=== PATIENT | male | born 1965 | race African-American/Black ===

== ENCOUNTER 2025-09-30 12:06 | Outpatient (CLI) | payer OTHER, SELFPAY ==
--- NOTE | ~2025-09-30 | PE_ITS ---
EXAMINATION: PET_PETPSMAST_PT DATE: 09/30/2025 15:08 INDICATION: Prostate cancer TECHNIQUE: 5.156 mCi of Illucix Ga-68([id number]) was administered i.v. Low dose computed tomography (CT) images were acquired from the base of the brain to the base of the brain to the proximal thighs for attenuation correction and anatomic localization. Positron emission tomography (PET) images were acquired in the same distribution beginning 76 minutes after injection. Images including fused PET/CT images were reconstructed in axial, coronal, and sagittal planes. Automated exposure control technique was employed. The dose-length product was 1237.41mGy-cm. COMPARISON: None FINDINGS: Head/neck: Typical pattern of symmetric physiologic increased activity in the lacrimal, parotid and submandibular glands as well as along the mucosa of the nasal and oral cavities, pharynx and hypopharynx. No pathologically enlarged cervical lymphadenopathy or suspicious foci of increased uptake in the visualized head or neck. Chest: No suspicious pulmonary nodules, pneumonia or other pulmonary infiltrates. No pleural effusion. Heart size normal. Atherosclerotic coronary artery calcium location. No pericardial effusion. Thoracic aorta is normal in caliber. No pathologically enlarged or PSMA avid thoracic lymphadenopathy. Abdomen/pelvis/proximal thighs: Physiologic renal accumulation and excretion of activity in the kidneys, bladder and along portions of ureters. Prostatomegaly measuring 4.7 x 4.6 cm. There is heterogeneous increased uptake in the prostate with 2 foci of more prominent uptake most intense with maximal SUV of 10.6 at the midline posterior inferior margin of the prostate and the second slightly more cephalad at the right posterior aspect of the prostate with maximal SUV of 8.2. Normal degree and slightly heterogenous pattern of increased uptake throughout the liver and spleen without radiologic correlate or dominant PSMA avid lesion. The gallbladder, pancreas and bilateral adrenal glands are normal. Moderate uptake scattered throughout the bowels with typical duodenal and proximal jejunal predominance and without radiologic correlate, also likely physiologic. Normal appendix. There is a 10 x 6 mm left perirectal/presacral lymph node with prominent increased activity with maximal SUV of 12.2 consistent with metastatic disease. No other abnormal foci of increased uptake or pathologically enlarged lymphadenopathy in the abdomen, pelvis or proximal thighs. Musculoskeletal: Moderate cervical and lumbar and severe thoracic spondylosis with bridging osteophytes at multiple levels predominantly in the thoracic spine consistent with diffuse idiopathic skeletal hyperostosis (DISH). No suspicious lytic, blastic or abnormally PSMA avid bone lesions. IMPRESSION: 1. Heterogeneous increased uptake in the prostate with 2 foci of more intense uptake posteriorly consistent with primary prostate cancer. 2. Single PSMA avid 10 x 6 mm left perirectal/presacral lymph node consistent with metastatic disease. No other lesions suspicious for metastatic disease in the chest, abdomen or pelvis. Reviewed, dictated and finalized at location A. [facility] IMPRESSION: 1. Heterogeneous increased uptake in the prostate with 2 foci of more intense u ptake posteriorly consistent with primary prostate cancer. 2. Single PSMA avid 10 x 6 mm left perirectal/presacral lymph node consistent w ith metastatic disease. No other lesions suspicious for metastatic disease in t he chest, abdomen or pelvis.
--- OUTSIDE RECORDS SUMMARY | 2025-09-30 12:29 | XMS_ITS | Clinical Summary ---
Author Organization [facility] Address [address] [place] [phone] Phone Care Team Providers Care Judge Clerk Name Role Phone Provider, Unknown Primary Care Provider Unavaila ble Allergies No known active allergies Medications Meloxicam 15 MG Tablet Take 1 Tab by mouth daily. 1 12/31/2018 Active lisinopril-hydr oCHLOROthiazide (PRINZIDE, ZESTORETIC) 20-25 MG Tablet Take 1 Tab by mouth daily. 2 01/14/2019 Active dilTIAZem (CARDIZEM CD) 120 MG CAPSULE SR 24 HR TAKE 1 CAPSULE BY MOUTH EVERY DAY 1 02/04/2019 Active amoxicillin-cla vulanate (AUGMENTIN) 875-125 MG TabletIndicatio ns:Dental abscess Take 1 Tab by mouth 2 times daily. 20 Tab 02/14/2019 Active HYDROcodone-satya taminophen (NORCO) 5-325 MG TabletIndicatio ns:Pain, dental Take 1 Tab by mouth every 6 hours as needed for Moderate or more severe pain. 12 Tab 02/14/2019 Active Active Problems No known active problems Social History Tobacco Use Types Packs/Day Years Used Date Smoking Tobacco: Never Smokeless Tobacco: Never Alcohol Use Standard Drinks/Week Comments Yes 0 (1 standard drink = 0.6 oz pur e alcohol) occasionally Sex and Gender Information Value Date Recorded Sex Assigned at Not on file Legal Sex Male 12:14 AM CDT Gender Identity Not on file Sexual Orientation Not on file Last Filed Vital Signs Vital Sign Reading Time Taken Comments Blood Pressure 134/84 02/14/2019 1:59 PM CDT Pulse 114 02/14/2019 1:59 PM CDT Temperature 37.8 C (100 F) 02/14/2019 1:59 PM CDT Respiratory Rate - - Oxygen Saturation 96% 02/14/2019 1:59 PM CDT Inhaled Oxygen Concentration - - Weight 119.3 kg (263 lb) 02/14/2019 1:59 PM CDT Height 175.3 cm (5' 9) 02/14/2019 1:59 PM CDT Body Mass Index 38.84 02/14/2019 1:59 PM CDT Plan of Treatment Health Maintenance Due Date Last Done Comments Hepatitis C Virus (HCV) Screening 1965 TdaP Immunization 1963 Cologuard 2008 Colonoscopy 2008 Colorectal Cancer Screening 2008 Immunochemical Fecal Occult Blood 2008 Pneumococcal Immunization (5 0+ years) (1 of 1 - PCV) 2013 Zoster Immunization (1 of 2) 2013 Influenza Immunization (#1) 2025 SARS-COV-2 Immunization ( - season) 2025 Respiratory Syncytial Virus (RSV) Immunization (Adult) (1 - 1-dose 75+ series) 2038 Hepatitis B Immunization Aged Out No longer eligible based on patient's age to complete this topic Human Papillomavirus (HPV) Immunization Aged Out No longer eligible b ased on patient's age to complete this topic Meningococcal Immunization (ACWY) Aged Out No longer eligible based on patient's age to complete this topic Rotavirus Immunization Aged Out No lo nger eligible based on patient's age to complete this topic Insurance [facility] Care Teams Judge Clerk Relationship Specialty Start Date End Date Provider, Unknown UNKNOWN PCP - General 02/14/19
--- OUTSIDE RECORDS SUMMARY | 2025-09-30 12:29 | XMS_ITS | Clinical Summary ---
Author Organization [facility] Address [address] [place] [address] Phone Care Team Providers Care Retail Selling Specialist Name Role Phone Gunnar Brown MD Primary Care Provider Medications dilTIAZem (DILACOR XR) 180 mg Extended Release capsule Take 1 Capsule (180 mg) by mouth daily. 90 Capsule 3 07/05/2025 4:40 PM CDT 12/30/2024 Active lisinopril-hydr oCHLOROthiazide (ZESTORETIC) 20-25 mg tablet Take 1 Tablet by mouth daily. 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 Relation to Subscriber:Self Name:Bernabe Landin Sr. Payer ID:Not on file Group ID:[id number] Type:RX Commercial Address: [place] Care Teams Retail Selling Specialist Relationship Specialty Start Date End Date Gunnar Brown MD [address] [place] [phone] PCP - General Family Practice 10/10/23
--- OUTSIDE RECORDS SUMMARY | 2025-09-30 12:29 | XMS_ITS | Clinical Summary ---
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 Name Role Phone Gunnar Brown MD Primary Care Provider Lake Correia MD Unavailable [phone] Allergies No known active allergies Medications B.animalis,bifid ,infantis,long (PROBIOTIC 4X ORAL) Take by mouth Active omega-3 fatty acids-fish oil 300-1,000 mg capsule Take 2 capsules (2 g total) by mouth daily Active cholecalciferol 25 mcg (1,000 unit) tablet Take 1 tablet (1,000 Units total) by mouth daily Active ascorbic acid (ascorbic acid with abdias hips) 500 mg tablet,chewable Acti ve MAGNESIUM CITRATE ORAL Take by mouth Active dilTIAZem XR 180 mg 24 hr capsuleIndicatio ns:Benign hypertension Take 1 Capsule (180 mg) by mouth daily. 100 capsule 3 5 Active lisinopril-hydro CHLOROthiazide (ZESTORETIC) 20-25 mg per tabletIndication s:Benign hypertension Take 1 Tablet by mouth daily. 100 tablet 3 5 Active zinc sulfate (ZINC-220 ORAL) Take by mouth 2 (two) times a week 09/07/20 25 Discontinu ed(Therapy completed) Active Problems Problem Noted Date Diagnosed Date Elevated prostate specific antigen (PSA) 025 Prediabetes 08/22/2025 Impaired fasting glucose 01/12/2024 Positive colorectal cancer screening using Colog uard test 01/28/2023 Overview (01/28/2023): Added automatically from request for surgery [id number] Slow transit constipation 03/29/2022 Assessment & Plan (03/29/2022 5:00 PM CDT): Continue higher-fiber, higher-hydration diet Want to aim for 64 ounces of water daily Flat abdomen xray ordered today I don't believe we are dealing with obstruction, however if pain ratchets up, or there is a stoppage in flatus (gas) passage as well as constipation, we will need to get CT. The abdominal xray can also tell if there is obstruction, however. Lumbar facet arthropathy 02/22/2021 Degenerative lumbar spinal stenosis 02/22/2021 DDD (degenerative disc disease), lumbar 02/23/20 Insomnia secondary to chronic pain 01/18/2021 Chronic bilateral low back pain without sciatica 01/18/2021 Lumbar radiculopathy 01/18/2021 Primary osteoarthritis of right hip 12/04/2020 Hip abductor tendinitis, right 12/04/2020 Class 2 obesity due to exces s calories without serious comorbidity with body mass index (BMI) of 35.0 to 35.9 in adult 01/19/2020 Assessment & Plan (08/22/2025 9:12 AM CDT): BMI Follow-up includes: nutrition counseling, exercise counseling, and education provided. Assessment & Plan (02/18/2025 10:02 AM CDT): BMI Follow-up includes: nutrition counseling, exercise counseling, and education provided. Assessment & Plan (07/16/2024 10:35 AM CDT): BMI Follow-up includes: nutrition counseling, exercise counseling, and education provided. 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 Assessment & Plan (07/10/2023 10:15 AM CDT): Improving BMI Follow-up includes: nutrition counseling, exercise counseling, and education provided. 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 Assessment & Plan (10/25/2021 8:25 AM SOLE 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 OPERATOR): BMI Follow-up includes: nutrition counseling, exercise counseling and education provided. Assessment & Plan (02/05/2021 8:00 PM CDT): BMI Follow-up includes: nutrition counseling, exercise counseling and education provided. The phentermine failed, so we will avoid that in the future. Trying the Slim 180 diet, so we will see how that progresses As much as it fits with the Slim plan, adhere to the DASH plan (see below) Other specified inflammatory spondylopathies, thoracic region 01/19/2020 History of total knee arthroplasty, left 019 History of total knee arthroplasty, right 2018 Presence of artificial knee joint, left 10/06/20 19 Chronic pain of both knees 02/18/2019 Assessment & Plan (02/18/2019 12:00 PM CDT): Continue with meloxicam Referral to Orthopedics Patient had his right knee replaced and now is ready for his left knee to be replaced Recommend weight loss Lipid screening 09/18/2017 Assessment & Plan (09/18/2017 5:12 PM CDT): Will check ;lipids Benign hypertension 04/09/2014 Overview (02/28/2017): BENIGN HYPERTENSION Assessment & Plan (02/18/2025 10:02 AM CDT): Blood Pressure Follow-up: Lifestyle modifications education provided on sodium reduction, increase physical activity, reduce alcohol consumption, and weight reduction. Assessment & Plan (07/16/2024 10:36 AM CDT): Blood Pressure Follow-up: Lifestyle modifications education provided on sodium reduction, increase physical activity, reduce alcohol consumption, and weight reduction. 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 Assessment & Plan (07/10/2023 10:16 AM CDT): Continuing diltiazem, lisinopril-hct as before Discussed DASH Awaiting labs Follow up in 6 mos, sooner PRN Assessment & Plan (01/09/2023 10:32 AM SOLE 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 OPERATOR): Blood pressure looks good today in office, will continue Lisinopril-HCTZ and Diltiazem. Assessment & Plan (04/28/2022 11:03 AM CDT): BP is borderline today Discussed IF. Would encourage to use 14:10 or 16:8 schedule rather than 12:12 (you can work up to it of course) Continuing current regimen As to semglutide, it is on the formulary (as Ozempic) but is higher-tiered (likely more expensive). Assessment & Plan (02/05/2021 8:00 PM CDT): Blood Pressure Follow-up: Lifestyle modifications education provided on sodium reduction, increase physical activity, reduce alcohol consumption and weight reduction. BP is much improved. We will continue on diltiazem current dose Assessment & Plan (02/18/2019 12:01 PM CDT): Hypertension is unchanged. Continue current treatment regimen. Blood pressure will be reassessed at the next regular appointment. Continue with lisinopril-hydrochlorothiazide daily Continue with diltiazem CD 120 mg daily Lifestyle changes can help you control and prevent high blood pressure, even if you're taking blood pressure medication. Here's what you can do: Eat healthy foods. Eat a healthy diet. Try the Dietary Approaches to Stop Hypertension (DASH) diet, which emphasizes fruits, vegetables, whole grains, poultry, fish and low-fat dairy foods. Get plenty of potassium, which can help prevent and control high blood pressure. Eat less saturated fat and trans fat. Decrease the salt in your diet. A lower sodium level -- 1,500 milligrams (mg) a day -- is appropriate for people 51 years of age or older, and individuals of any age who are black or who have hypertension, diabetes or chronic kidney disease. Maintain a healthy weight. Keeping a healthy weight, or losing weight if you're overweight or obese, can help you control your high blood pressure and lower your risk of related health problems. If you're overweight, losing even 5 pounds (2.3 kilograms) can lower your blood pressure. Increase physical activity. Regular physical activity can help lower your blood pressure, manage stress, reduce your risk of several health problems and keep your weight under control. Limit alcohol. Even if you're healthy, alcohol can raise your blood pressure. If you choose to drink alcohol, do so in moderation. For healthy adults, that means up to one drink a day for women of all ages and men older than age 65, and up to two drinks a day for men age 65 and younger. One drink equals 12 ounces of beer, 5 ounces of wine or 1.5 ounces of 80-proof liquor. Don't smoke. Tobacco injures blood vessel ramirez and speeds up the process of hardening of the arteries. If you smoke, ask your doctor to help you quit. Manage stress. Reduce stress as much as possible. Practice healthy coping techniques, such as muscle relaxation, deep breathing or meditation. Getting regular physical activity and plenty of sleep can help, too. Notify the office for blood pressure greater than 130/80 Assessment & Plan (09/21/2017 2:38 PM CDT): Hypertension is unchanged. Regular aerobic exercise. Continue current medications. Blood pressure will be reassessed at the next regular appointment. 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 He is unsure about physical therapy or muscle relaxers. He had a cxr which did show some DDD in his thoracic spine. We'll start with dedicated x-ray of thoracic spine. Consider MRI if needed. He has some tramadol from ER for pain. Obesity (BMI 30-39.9) 04/09/20142019 Overview (02/28/2017): MORBID OBESITY Assessment & Plan (02/18/2019 11:59 AM CDT): Obesity is unchanged. Discussed the patient's BMI. The BMI is above average; BMI management plan is completed. General weight loss/lifestyle modification strategies discussed (elicit support from others; identify saboteurs; non-food rewards, etc). Diet= low-carb Limit white bread, rice, pasta, potatoes, juice, energy drinks, coffee creamers with sugar, sugar sodas, candy, cake, cookies, ice cream. Be more careful with starchy vegetables like corn, carrots, and fruits. Stay away from processed foods, fast foods, fried foods. The cornerstone of this diet is lean grilled meats, green salads or cooked greens, fat-free milk, cottage cheese, nuts like qmmjkez-xrmsweh-szahezu, protein bars with 10-15 g of protein and 20-30 g of carbohydrate. Choose whole grain breads and pastas, brown rice, sweet potatoes, read onions--these whole grains absorb more slowly thus blood sugar does not surge so high so quickly. Avoid drinking juice, eat a piece of fruit instead. Assessment & Plan (09/21/2017 2:40 PM CDT): BMI Follow-up includes: exercise counseling. Encounters Date Type Department Care Team Description 09/15/2025 7:30 AM CDT - 09/15/2025 8:15 AM CDT Surgery [facility] Operating Room [address] [place] [address] Lake Correia MD URONAV GUIDED PROSTATE BIOPSY 09/15/2025 7:25 AM CDT Anesthesia Event [facility] Operating Room [address] [place] [address] Sanjeev Strange, DO Waldron, Ji Mckenzie MD 09/15/2025 6:02 AM CDT - 09/15/2025 9:13 AM CDT Hospital Encounter [facility] Operating Room [address] [place] [address] Lake Correia MD Elevated prostate specific antigen (PSA) Discharge Disposition: Discharge to home or self care 08/22/2025 9:45 AM CDT Ancillary Procedure [facility] Imaging at [address] [phone] Degenerative lumbar spinal stenosis 08/22/2025 9:00 AM CDT Office Visit [facility] Primary Care at [address] [phone] Gunnar Brown MD Benign hypertension (Primary Dx); Class 2 obesity due to excess calories without serious comorbidity with body mass index (BMI) of 35.0 to 35.9 in adult; Prediabetes; Need for hepatitis B screening test; Degenerative lumbar spinal stenosis 08/22/2025 Results Follow-Up [facility] Primary Care at [address] [phone] Gunnar Brown MD XR Spine Lumbar 2 or 3 Views 07/04/2025 8:55 AM CDT Lab [address] Benign hypertension; Screening PSA (prostate specific antigen); Impaired fasting glucose 07/04/2025 Results Follow-Up [facility] Primary Care at [address] [phone] Gunnar Brown MD Lipid panel, PSA screen, Hemoglobin A1c, Additional followed-up results: 4 from Last 3 Months Immunizations Immunization Administration Dates Next Due Influenza, Quadrivalent, Spl it, Intramuscular 12/11/2016,06/12/2016 Influenza, Unspecified 02/18/2025(Deferr ed: Patient Refused),11/25/2023(Deferred: Patient Refused),11/24/2023(Deferred: Patient Refused),07/10/2023(Deferred: Patient Refused),01/09/2023(Deferred: Patient Refused),11/25/2022(Deferred: Patient Refused),11/24/2022(Deferred: Patient Refused),11/25/2021(Deferred: Patient Refused),11/24/2021(Deferred: Patient Refused),10/25/2021(Deferred: Patient Refused),11/24/2020(Deferred: Patient Refused),11/24/2020(Deferred: Patient Refused),10/08/2020(Deferred: Patient Refused),09/15/2019(Deferred: Patient Refused),08/24/2018(Deferred: Patient Refused),10/15/2017(Deferred: Patient Refused) Tdap 12/26/2014 Surgical History Surgery Date Site/Laterality Comments OTHER SURGICAL HISTORY 11/24/2013 - 11/23/2014 Influenza: Medical Management KNEE ARTHROSCOPY Arthroscopy knee JOINT REPLACEMENT Bilateral knee COLONOSCOPY 02/11/2023 Medical History Medical History Date Comments Hx Other Medical Influenza; Comm ents: Confirmed via rapid influenza swab. 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; Commen ts: OAC 07/23/2016 -ALL Arthritis Joint pain Family History Medical History Relation Name Comments Diabetes type II Mother Zuleika Landin Diabetes -T ype II; Hypertension Mother Zuleika Landin Hypertension; Stroke Mother Zuleika Landin Stroke; Diabetes type II Other Family hist ory of Diabetes mellitus type 2; Hypertension Sister None Hypertension; Relation Name Status Comments Mother Zuleika Landin Other Sister None Social History Tobacco Use Types Packs/Day Years Used Date Smoking Tobacco: Former Cigarettes Q uit: 12/1999 Smokeless Tobacco: Never Tobacco Cessation:Counseling Given: Not Answered Alcohol Use Standard Drinks/Week Comments Yes 0 (1 standard drink = 0.6 oz pur e alcohol) PHQ-2 Answer Date Recorded PHQ-2 Total Score (If total score is 3 or more points, staff should administer the PHQ-9) 0 08/22/2025 AUDIT-C Answer Date Recorded Q1: How often do you have a drink containing alc ohol? Monthly or less 09/07/2025 Q2: How many drinks containi ng alcohol do you have on a typical day when you are drinking? 1 or 2 09/07/2025 Q3: How often do you have si x or more drinks on one occasion? Never 09/07/2025 Personal Safety Answer Date Recorded Have you ever been in or are you currently in a harmful physical or emotional relationship or is someone making you feel afraid or unsafe? 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 Gender Identity Not on file Sexual Orientation Not on file Last Filed Vital Signs Vital Sign Reading Time Taken Comments Blood Pressure 125/78 09/15/2025 9:03 AM CDT Pulse 60 09/15/2025 9:03 AM CDT Temperature 36.3 C (97.4 F) 09/15/2025 9:03 AM CDT Respiratory Rate 18 09/15/2025 9:03 AM CDT Oxygen Saturation 94% 09/15/2025 9:03 AM CDT Inhaled Oxygen Concentration - - Weight 111.6 kg (246 lb 0.5 oz) 09/15/2025 6:34 AM CDT Height 175.3 cm (5' 9) 09/15/2025 6:10 AM CDT Body Mass Index 36.33 09/15/2025 6:10 AM CDT Plan of Treatment Health Maintenance Due Date Last Done Comments Hepatitis B Screening 1981 Regular Well Visit/Exam 18-64 1981 Pneumococcal vaccine <65 (1 of 2 - PCV) 1982 Depression Screening 08/22/2026 08/22/2025, 02/18/2025, 07/16/2024, Additional history exists DTaP/Tdap/Td Vaccine (2 - Td or Tdap) 11/23/2026 12/26/2014 Postponed from 12/26/2024 (Patient declined, but will receive in the future) Prostate Cancer Screening-PSA 07/04/2027 07/04/2025, 07/16/2024, 07/10/2023, Additional history exists Colon Cancer Screening-Colonoscopy 02/11/2033 02/11/2023, 01/05/2020 Influenza Vaccine Discontinued 12/11/2016, 06/12/2016 Hepatitis C Screening Completed 02/02/2021 Colon Cancer Screening-CT Colonography Discontinued 02/11/2023, 01/05/2020 Colon Cancer Screening-DNA Stool Discontinued 02/11/2023, 01/16/2023, 01/05/2020, Additional history exists Colon Cancer Screening-FIT Discontinued 02/11, 01/16/2023, 01/05/2020, Additional history exists Colon Cancer Screening-Sigmoidoscopy Discontinued 02/11/2023, 01/05/2020 Zoster Vaccine Discontinued Medical Devices Implanted Type Area Rod Hanger Device Identifier Shelf Expiration Date Model / Serial / Lot [employer] [id number] Attune Cementless Rotate Platform Knee 7 Baseplate Tibial - [id number] Implanted:Qty: 1 on 09/21/2019 by Lee Guido MD at [facility] Left: Knee [employer] 05/23/2028 [id number] / / [id number] [employer] [id number] Attune Cruciate Retain Cementless Knee Left 7 Component Femoral - [id number] Implanted:Qty: 1 on 09/21/2019 by Lee Guido MD at [facility] Left: Knee [employer] 06/23/2028 [id number] / / [id number] [employer] [id number] Attune 5mm Cruciate Retaining Rotate Platform Knee 7 Insert - [id number] Implanted:Qty: 1 on 09/21/2019 by Lee Guido MD at [facility] Left: Knee [employer] 05/23/2024 [id number] / / [id number] Procedures Procedure Name Priority Date/Time Associated Diagnosis Comments SURGICAL PATHOLOGY Routine 09/15/2025 9: 47 AM CDT Elevated prostate specific antigen (PSA) URONAV GUIDED PROSTATE BIOPSY 09/15/2025 7:25 AM CDT Elevated prostate specific antigen (PSA) POTASSIUM, WHOLE BLOOD STAT 09/15/2025 6:31 AM CDT XR SPINE LUMBAR 2 OR 3 VIEWS Routine 08/22/2025 9:53 AM CDT Degenerative lumbar spinal stenosis EGFR Routine 07/04/2025 8:55 AM CDT Benign hypertension DIFFERENTIAL AUTO Routine 07/04/2025 8:5 5 AM CDT Benign hypertension COMPREHENSIVE METABOLIC PANEL Routine 07/04/2025 8:55 AM CDT Benign hypertension CBC WITH AUTO DIFFERENTIAL Routine 07/04/2025 8:55 AM CDT Benign hypertension HEMOGLOBIN A1C Routine 07/04/2025 8:55 AM CDT Impaired fasting glucose PSA SCREEN Routine 07/04/2025 8:55 AM CDT Screening PSA (prostate specific antigen) LIPID PANEL Routine 07/04/2025 8:55 AM CDT Benign hypertension COLONOSCOPY 02/11/2023 8:31 AM CDT HEPATITIS C ANTIBODY Routine 02/02/2021 9:42 AM 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 Encounter for hepatitis C screening test for low risk patient from Last 3 Months or Most Recently Relevant to Health Maintenance Results * Surgical pathology (09/15/2025 9:47 AM CDT) Tissue (Prostate, Needle Biopsy) 09/15/2025 7:08 AM CDT Tissue specimen (specimen) (Prostate, Needle Biopsy) 09/15/2025 7:08 AM CDT Tissue specimen (specimen) (Prostate, Needle Biopsy) 09/15/2025 7:08 AM CDT Tissue specimen (specimen) (Prostate, Needle Biopsy) 09/15/2025 7:08 AM CDT Tissue specimen (specimen) (Prostate, Needle Biopsy) 09/15/2025 7:08 AM CDT Tissue specimen (specimen) (Prostate, Needle Biopsy) 09/15/2025 7:08 AM CDT Tissue specimen (specimen) (Prostate, Needle Biopsy) 09/15/2025 7:08 AM CDT Tissue specimen (specimen) (Prostate, Needle Biopsy) 09/15/2025 7:08 AM CDT Tissue specimen (specimen) (Prostate, Needle Biopsy) 09/15/2025 7:08 AM CDT Tissue specimen (specimen) (Prostate, Needle Biopsy) 09/15/2025 7:08 AM CDT Tissue specimen (specimen) (Prostate, Needle Biopsy) 09/15/2025 7:08 AM CDT Tissue specimen (specimen) (Prostate, Needle Biopsy) 09/15/2025 7:08 AM CDT Tissue specimen (specimen) (Prostate, Needle Biopsy) 09/15/2025 7:11 AM CDT Narrative PATHOLOGY [facility] - 09/19/2025 2:23 PM CDT EPIC results best viewed via link to PDF [facility] Department of Pathology [address] [place] [address] Note to Patients: This report may contain a detailed description of human tissue sent by a health care provider to the laboratory for pathologic evaluation. The content of this report is essential for diagnosis and may provide important critical findings. This information may be unfamiliar to patients to review without a medical professional present. It is advised that the patient review this report in the presence of a health care provider who can answer questions and explain the details. Final Report Patient Name: SANJEEV LANDIN Address: [address] [place] [id number] Gender: M : 1965 (Age: 59) Service: Surgery Location: [facility] Hospital #: [id number] Patient Type: [facility] Taken: 09/15/2025 Received: 09/15/2025 Accessioned: 09/15/2025 Reported: 09/19/2025 Physician(s):Lake Alexandr Aliperti, M.D. Diagnosis: A. Prostate, right lateral base, needle biopsy- Benign prostate tissue B. Prostate, right medial base, needle biopsy- Benign prostate tissue C. Prostate, right lateral mid, needle biopsy- Benign prostate tissue D. Prostate, right medial mid, needle biopsy- Benign prostate tissue E. Prostate, right lateral apex, needle biopsy- Benign prostate tissue F. Prostate, right medial apex, needle biopsy- Benign prostate tissue G. Prostate, left lateral base, needle biopsy- Benign prostate tissue H. Prostate, left medial base, needle biopsy- Prostatic acinar adenocarcinoma, [place] grade 4+4=8, grade group 4 Single 2 mm focus in 16mm core I. Prostate, left lateral mid, needle biopsy- Benign prostate tissue J. Prostate, left medial mid, needle biopsy- Prostatic acinar adenocarcinoma, [place] grade 4+4=8, grade group 4 Tumor present in single core, 2 of 16 mm Focal perineural invasion K. Prostate, left lateral apex, needle biopsy- Benign prostate tissue L. Prostate, left medial apex, needle biopsy- Benign prostate tissue M. Prostate, region of interest, needle biopsy- Prostatic acinar adenocarcinoma, [place] grade 4+5 = 9, grade group 5 Discontinuous tumor foci involving 60% of core volume (4 cores, 33 mm in total) Daphne Monique M.D. Report Electronically Reviewed and Signed Out By Daphne Monique M.D. 09/19/2025 14:23:10 Specimen(s) Received: A: Right lateral base B: Right medial base C: Right lateral mid D: Right medial mid E: Right lateral apex F: Right medial apex G: Left lateral base H: Left medial base I: Left lateral mid J: Left medial mid K: Left lateral apex L: Left medial apex M: Prostate biopsy region of interest Microscopic Description: Microscopic examination corroborates the diagnosis. PIN4 IHC cocktail with appropriate control also reviewed was performed on all parts to facilitate the diagnosis. Dr. Sanchez has reviewed this case and concurs with the interpretation. Clinical History: Elevated prostate specific antigen. Uronav guided prostate biopsy. Gross Description: The specimen is submitted in thirteen containers labeled SANJEEV LANDIN. A. The first container is labeled right lateral base. It is 1 core of pimentel tissue measuring 1.1 cm. Entirely in A. B. The second container is labeled right medial base. It is 1 core of pimentel tissue measuring 1 cm. Entirely in B. C. The third container is labeled right lateral mid. It is 1 core of pimentel tissue measuring 1.4 cm. Entirely in C. D. The fourth container is labeled right medial mid. It is 1 core of pimentel tissue measuring 9 mm. Entirely in D. E. The fifth container is labeled right lateral apex. It is 1 core of pimentel tissue measuring 9 mm. Entirely in E. F. The sixth container is labeled right medial apex. It is 1 core of pimentel tissue measuring 1.2 cm. Entirely in F. G. The seventh container is labeled left lateral base. It is 1 core of pimentel tissue measuring 1.2 cm. Entirely in G. H. The eighth container is labeled left medial base. It is 1 core of pimentel tissue measuring 1.6 cm. Entirely in H. I. The ninth container is labeled left lateral mid. It is 1 core of pimentel tissue measuring 1.3 cm. Entirely in I. J. The tenth container is labeled left medial mid. It is 1 core of pimentel tissue measuring 1.6 cm. Entirely in J. K. The eleventh container is labeled left lateral apex. It is 2 cores of pimentel tissue between 0.3 and 0.6 cm. Entirely in K. L. The twelfth container is labeled left medial apex. It is 1 core of pimentel tissue measuring 9 mm. Entirely in L. M. The thirteenth container is labeled region of interest. It is 4 cores of pimentel tissue between 0.7 and 1.2 cm. Entirely in M. T.A. Kian Whitten., P.A./Daphne Monique M.D. REPORT IMAGES AND SCANNED DOCUMENTS, IF INCLUDED, ONLY VIEWABLE IN PDF VERSION OF REPORT The performance characteristics of some immunohistochemical stains, fluorescence in-situ hybridization tests and immunophenotyping by flow cytometry cited in this report (if any) were determined by the Surgical Pathology Department at [facility] as part of an ongoing quality assurance supervisor body program and in compliance with federally mandated regulations drawn from the Clinical Laboratory Improvement Act of 1988 (CLIA '88). Some of these tests rely on the use of analyte specific reagents and are subject to specific labeling requirements by the US Food and Drug Administration. Such diagnostic tests may only be performed in a facility that is certified by the Department of Health and Human Services as a high complexity laboratory under CLIA '88. The FDA has determined that such clearance or approval is not necessary. This test is used for clinical purposes. It should not be regarded as investigational or for research. Nevertheless, federal rules concerning the medical use of analyte specific reagents require that the following disclaimer be attached to the report: This test was developed and its performance characteristics determined by the Surgical Pathology Department [facility]. It has not been cleared or approved by the U. S. Food and Drug Administration. Note for decalcified specimens: This assay has not been validated on decalcified tissues. Results should be interpreted with caution given the possibility of false negativity on decalcified specimens Lake Correia MD LAB PATHOLOGY ORDERA BLES Final Result Performing Organization Address [facility] Co de Phone Number PATHOLOGY [facility] ([place]) [address] [place] [address] * Potassium, whole blood (09/15/2025 6:31 AM CDT) Potassium, bld 3.8 3.3 - 4.9 mmol/L Comment: Interpretive Data This method is not able to assess for hemolysis, which may falsely increase potassium concentrations. If further testing is needed to evaluate this result, consider in-laboratory plasma potassium. Current Interpretive Data was last revised on 2022. Blood 09/15/2025 6:31 AM CDT 09/15/2025 6:37 AM CDT Grey Welsh MD LAB BLOOD ORDERABLES F inal Result Performing Organization Address [facility] Co de Phone Number [facility] ([place]) 1 [facility] Department [place] [address] * XR Spine Lumbar 2 or 3 Views (08/22/2025 9:53 AM CDT) Anatomical Region Laterality Modality Spine N/A Digital Radiogra phy 08/22/2025 12:3 1 PM CDT Narrative 08/22/2025 12:34 PM CDT EXAM DESCRIPTION: XR SPINE LUMBAR 2 OR 3 VIEWS REASON FOR STUDY: chronic back pain; history of elevated PSA Pt complains of lbp since a fall in March. No prior fx or surgery TECHNIQUE: There are 2 radiographic view(s) of the lumbar spine. COMPARISON: Prior MRI 01/23/2021 FINDINGS: The most inferior fully formed disc space is considered L5-S1 keeping with previous numbering. There is preservation of vertebral body height. There is prominent degenerative endplate change lower thoracic spine and upper to mid lumbar spine with moderate change of L4 and L5. There is moderate multilevel disc space narrowing. Osteophyte formation or ossification along the disc is seen posteriorly at L3-4 and L4-5. Moderate facet arthropathy L4-5 and L5-S1. Mild anterolisthesis L4 on L5. If there is strong concern at a focal level, consider CT. Soft tissues are unremarkable. IMPRESSION: 1. Moderate spondylosis lumbar spine. 2. Mild anterolisthesis L4 on L5. 3. No acute fracture. THIS IS AN ELECTRONICALLY VERIFIED FINAL REPORT 08/22/2025 12:34 PM - Electronically signed by Robert Monge M.D. MJ T: Report ID: [id number] Reading Location: [place] [address] Procedure Note Robert Monge MD - 08/22/2025 EXAM DESCRIPTION: XR SPINE LUMBAR 2 OR 3 VIEWS REASON FOR STUDY: chronic back pain; history of elevated PSA Pt complains of lbp since a fall in March. No prior fx or surgery TECHNIQUE: There are 2 radiographic view(s) of the lumbar spine. COMPARISON: Prior MRI 01/23/2021 FINDINGS: The most inferior fully formed disc space is considered L5-S1 keeping with previous numbering. There is preservation of vertebral body height. There is prominent degenerative endplate change lower thoracic spine and upper to mid lumbar spine with moderate change of L4 and L5. There is moderate multileveldisc space narrowing. Osteophyte formation or ossification along the disc isseen posteriorly at L3-4 and L4-5. Moderate facet arthropathy L4-5 and L5-S1. Mild anterolisthesis L4 on L5. If there is strong concern at a focal level, consider CT. Soft tissues are unremarkable. IMPRESSION: 1. Moderate spondylosis lumbar spine. 2. Mild anterolisthesis L4 on L5. 3. No acute fracture. THIS IS AN ELECTRONICALLY VERIFIED FINAL REPORT 08/22/2025 12:34 PM - Electronically signed by Robert Monge M.D. MJ T: Report ID: [id number] Reading Location: [place] [address] Gunnar Brown MD IMG XR PROCEDURES Final Res ult * eGFR (07/04/2025 8:55 AM CDT) eGFR 86 >=60 mL/min/1. 73 m2 Comment: Interpretive Data Reference Interval Normal >/= 90 mL/min/1.73m2 Mildly decreased* 60 - 89 mL/min/1.73m2 Mildly to moderately decreased 45 - 59 mL/min/1.73m2 Moderately to severely decreased 30 - 44 mL/min/1.73m2 Severely decreased 15 - 29 mL/min/1.73m2 Kidney Failure < 15 mL/min/1.73m2 *Relative to young adult level Estimated glomerular filtration rate is determined by the 2020 CKD-EPI equation recommended by the National Kidney Foundation (A Unifying Approach to GFR Estimation: Recommendations of the NKF-ASK Task Force on Reassessing the Inclusion of Race in Diagnosing Kidney Disease, JASN 2020). The CKD-EPI equation should not be used for patients with unstable renal function and has not been validated in children and those over 70. Current interpretive data was last reviewed 2021. Blood 07/04/2025 8:55 AM CDT 07/04/2025 10:47 AM CDT Gunnar Brown MD LAB BLOOD ORDERABLES Final Result [facility] ([place]) 1 [facility] Department [place] [address] * Differential, auto (07/04/2025 8:55 AM CDT) Neutrophil abs 2.18 1.50 - 6.50 K/cumm Imm gran abs 0.02 0.00 - 0.10 K/cumm [facility] ([place]) Lymphocyte abs 2.77 0.80 - 3.30 K/cumm [facility] ([place]) Monocyte abs 0.53 0.20 - 0.80 K/cumm [facility] ([place]) Eosinophil abs 0.10 0.00 - 0.50 K/cumm [facility] ([place]) Basophil abs 0.03 0.00 - 0.10 K/cumm [facility] ([place]) Neutrophil pct 38.7 % [facility] ([place]) Comment: Interpretive Data Percent cell count reference ranges are not reported, since discordance with absolute values may lead to misinterpretation of CBC data. Current Interpretive Data was last revised on 2018. Imm gran pct 0.4 % [facility] ([place]) Comment: Interpretive Data Percent cell count reference ranges are not reported, since discordance with absolute values may lead to misinterpretation of CBC data. Current Interpretive Data was last revised on 2018. Lymphocyte pct 49.2 % [facility] ([place]) Comment: Interpretive Data Percent cell count reference ranges are not reported, since discordance with absolute values may lead to misinterpretation of CBC data. Current Interpretive Data was last revised on 2018. Monocyte pct 9.4 % [facility] ([place]) Comment: Interpretive Data Percent cell count reference ranges are not reported, since discordance with absolute values may lead to misinterpretation of CBC data. Current Interpretive Data was last revised on 2018. Eosinophil pct 1.8 % [facility] ([place]) Comment: Interpretive Data Percent cell count reference ranges are not reported, since discordance with absolute values may lead to misinterpretation of CBC data. Current Interpretive Data was last revised on 2018. Basophil pct 0.5 % [facility] ([place]) Comment: Interpretive Data Percent cell count reference ranges are not reported, since discordance with absolute values may lead to misinterpretation of CBC data. Current Interpretive Data was last revised on 2018. Blood 07/04/2025 8:55 AM CDT 07/04/2025 10:47 AM CDT us Gunnar Brown MD LAB BLOOD ORDERABLES Final Result [facility] ([place]) 1 [facility] Department [place] [address] * (ABNORMAL) PSA screen (07/04/2025 8:55 AM CDT) Pathologist [facility] PSA-Total 7.32(H) <=5.40 ng/mL [facility] ([place]) Comment: Interpretive Data AGE SEX REFERENCE INTERVAL 0 minutes-150 years Female None 0 minutes-49 years Male None 50-59 years Male 0-3.90 60-69 years Male 0-5.40 70-79 years Male 0-6.20 80-150 years Male 0-6.20 The Roseline PSA Total assay procedure was used. Results from different manufacturers or methods may not be comparable. Serial testing should be performed using the same method. Current interpretive data last revised 22. Blood 07/04/2025 8:55 AM CDT 07/04/2025 10:47 AM CDT us Gunnar Brown MD LAB BLOOD ORDERABLES Final Result [facility] ([place]) 1 [facility] [place] [address] * CBC with auto differential (07/04/2025 8:55 AM CDT) Pathologist [facility] WBC 5.67 3.80 - 9.90 K/cumm Hgb 15.2 13.0 - 17.5 g/dL [facility] ([place]) Hct 46.4 38.9 - 50.3 % [facility] ([place]) Plt 363 150 - 400 K/cumm [facility] ([place]) MPV 9.2 9.1 - 12.3 fL [facility] ([place]) RBC 5.04 4.30 - 5.80 M/cumm [facility] ([place]) MCV 92.1 81.3 - 96.4 fL [facility] ([place]) MCH 30.2 27.1 - 33.3 pg [facility] ([place]) MCHC 32.8 32.3 - 35.7 g/dL [facility] ([place]) RDW CV 13.5 11.1 - 14.9 % [facility] ([place]) RDW SD 46.0 35.7 - 48.1 fL [facility] ([place]) NRBC abs 0.00 0.00 - 0.01 K/cumm RA[facility] ([place]) Blood 07/04/2025 8:55 AM CDT 07/04/2025 10:47 AM CDT Gunnar Brown MD LAB BLOOD ORDERABLES Final Result Performing Organization Address City/[facility]/ZIP Co de Phone Number RA[facility] ([place]) [address] [place] [address] * (ABNORMAL) Hemoglobin A1c (07/04/2025 8:55 AM CDT) Hgb A1C 5.7(H) 4.0 - 5.6 % [facility] ([place]) Estimated Average Glucose 117 mg/dL [facility] ([place]) Comment: The ADA recommends reporting an estimated Average Glucose (eAG) with all Hemoglobin A1c results using the equation derived from a study of 507 normal and diabetic adults. Minority populations were underrepresented and children were not included. (Diabetes Care 31:5320-5299, 2008). The eAG is not equivalent to a fasting glucose. Testing performed by: [facility], [facility], [place], [address] Blood 07/04/2025 8:55 AM CDT 07/04/2025 10:47 AM CDT Gunnar Brown MD LAB BLOOD ORDERABLES Final Result Performing Organization Address City/[facility]/ZIP Co de Phone Number [facility] ([place]) 1 [facility] [place] [address] * (ABNORMAL) Lipid panel (07/04/2025 8:55 AM CDT) Cholesterol 125 30 - 199 mg/dL [facility] ([place]) Comment: Interpretive Data Ages < or = 19 years Acceptable: <170 mg/dL Borderline high: 170-199 mg/dL High: >or= 200 mg/dL Ages > or = 20 years Desirable: <200 mg/dL Borderline high: 200-239 mg/dL High: >or= 240 mg/dL Literature References: 1. Expert Panel on Integrated Guidelines for Cardiovascular Health and Risk Reduction in Children and Adolescents. Pediatrics 2011;128:S213 2. NCEP Expert Panel. Circulation 2004;110:227 Current Interpretive Data was last revised on 2018. Triglycerides 50 <=149 mg/dL RAFI [facility]) Comment: Interpretive Data Ages < or = 9 years Acceptable: <75 mg/dL Borderline high: 75-99 mg/dL High: >or= 100 mg/dL Ages 10 to 20 years Acceptable: <90 mg/dL Borderline high: 90-129 mg/dL High: >or= 130 mg/dL Ages > or = 20 years Desirable: <150 mg/dL Borderline high: 150-199 mg/dL High: 200-499 mg/dL Very high: >or= 499 mg/dL Literature References: 1. Expert Panel on Integrated Guidelines for Cardiovascular Health and Risk Reduction in Children and Adolescents. Pediatrics 2011;128:S213 2. NCEP Expert Panel. Circulation 2004;110:227 Current Interpretive Data was last revised on 2018. HDL 38(L) >=40 mg/dL [facility] OW[facility]) Comment: Interpretive Data Ages < or = 19 years Acceptable: >45 mg/dL Borderline low: 40-45 mg/dL Low: <40 mg/dL Ages > or = 20 years Desirable: >or= 60 mg/dL Low: <40 mg/dL Literature References: 1. Expert Panel on Integrated Guidelines for Cardiovascular Health and Risk Reduction in Children and Adolescents. Pediatrics 2011;128:S213 2. NCEP Expert Panel. Circulation 2004;110:227 Current Interpretive Data was last revised on 2018. LDL, calculated 76 <=129 mg/dL [facility] OW[facility]) Comment: Interpretive Data Ages < or = 19 years Acceptable: <110 mg/dL Borderline high: 110-129 mg/dL High: >or= 130 mg/dL Ages > or = 20 years Optimal: <100 mg/dL Near optimal: 100-129 mg/dL Borderline high: 130-159 mg/dL High: >160 mg/dL Calculated using the Gusman LDL-C estimating equation. This equation was implemented on 2024. Prior to this date LDL-C was estimated using the Friedewald equation. Literature References: 1. Expert Panel on Integrated Guidelines for Cardiovascular Health and Risk Reduction in Children and Adolescents. Pediatrics 2011;128:S213 2. NCEP Expert Panel. Circulation 2004;110:227 3. Naseem Guy et al. JEFF Cardiol. 2019March 24;5(5):540-548. doi: 10.1001/jamacardio.2020.0013 Current Interpretive Data was last revised on 2024. Testing performed by: [place], [address] Non-HDL Cholesterol 87 mg/dL [facility] ([place]) Comment: Interpretive Data Ages < or = 19 years Acceptable: <120 mg/dL Borderline high: 120-144 mg/dL High: >145 mg/dL Ages > or = 20 years When triglycerides are >200 mg/dL, Non-HDL cholesterol is a secondary target of therapy with treatment goals that are 30 mg/dL greater than the LDL cholesterol target. Literature References: 1. Expert Panel on Integrated Guidelines for Cardiovascular Health and Risk Reduction in Children and Adolescents. Pediatrics 2011;128:S213 2. NCEP Expert Panel. Circulation 2004;110:227 Current Interpretive Data was last revised on 2018. Testing performed by: [place], [address] Chol/HDL ratio 3 [facility] ([place]) Comment:Testing performed by : [place], [address] Blood 07/04/2025 8:55 AM CDT 07/04/2025 10:47 AM CDT us Gunnar Brown MD LAB BLOOD ORDERABLES Final Result [facility] ([place]) 1 [facility] Department [place] [address] * (ABNORMAL) Comprehensive metabolic panel (07/04/2025 8:55 AM CDT) Sodium 141 135 - 145 mmol/L [facility] ([place]) Potassium, pl 4.0 3.3 - 4.9 mmol/L [facility] ([place]) Chloride 103 97 - 110 mmol/L [facility] ([place]) CO2 24 22 - 32 mmol/L [facility] ([place]) Anion gap 14 2 - 15 mmol/L [facility] ([place]) BUN 8 6 - 25 mg/dL [facility] ([place]) Creatinine 1.00 0.80 - 1.30 mg/dL [facility] ([place]) Glucose 99 70 - 199 mg/dL [facility] ([place]) Comment: Interpretive Data Fasting glucose >/= 126 mg/dl is diagnostic for diabetes. Fasting is defined as no caloric intake for at least 8 hours. Fasting glucose between 100 mg/dl to 125 mg/dl is diagnostic of prediabetes. In a patient with classic symptoms of hyperglycemia or hyperglycemic crisis, a random glucose >/= 200 mg/dl is diagnostic for diabetes. In the absence of unequivocal hyperglycemia, results should be confirmed by repeat testing. The classification and Diagnosis of Diabetes Diabetes Care 2021; 46: S19-S40. Current interpretive data was last revised 2022. Calcium 9.7 8.5 - 10.3 mg/dL [facility] ([place]) Bilirubin, total 0.3 0.1 - 1.2 mg/dL [facility] ([place]) Protein, pl 7.8 6.5 - 8.5 g/dL [facility] ([place]) Albumin 4.0 3.5 - 5.0 g/dL [facility] ([place]) Alk phos 138(H) 40 - 130 Units/L [facility] ([place]) ALT 26 7 - 55 Units/L [facility] ([place]) AST 31 10 - 50 Units/L [facility] ([place]) Blood 07/04/2025 8:55 AM CDT 07/04/2025 10:47 AM CDT us Gunnar Brown MD LAB BLOOD ORDERABLES Final Result [facility] ([place]) 1 [facility] Department [place] [address] * COLONOSCOPY (02/11/2023 8:31 AM CDT) Anatomical Region Laterality Modality Other Narrative Procedure Note Sixto Falk MD - 02/11/2023 8:31 AM CDT [facility] Patient Name: Sanjeev Landin Procedure Date: 02/11/2023 8:31 AM Date of : 1965 Admit Type: Outpatient Age: 57 Gender: Male Attending MD: Sixto Falk M.D. Room: [facility] ENDOSCOPY ROOM 2 Note Status: Finalized Patient Profile: Refer to note in patient chart for documentation of history and physical. Procedure: Colonoscopy Indications: This is the patient's first colonoscopy, Positive Cologuard test Referring MD: Gunnar Brown M.D. Providers: Sixto Falk M.D. Impression: - Hemorrhoids found on perianal exam. - The entire examined colon is normal. - No specimens collected. Recommendation: - Discharge patient to home. - Resume previous diet. - Continue present medications. - Repeat colonoscopy in 10 years for screening purposes. - Return to primary care physician as previously scheduled. Medicines: Propofol per Anesthesia Complications: No immediate complications. Estimated Blood Loss: Estimated blood loss: none. Procedure: Pre-Anesthesia Assessment: - This assessment was completed [Time ofAssessment] prior to the administration of sedation. The benefits, risks and alternatives of theprocedure and sedation were discussed and informed consentwas obtained. All questions were answered. Please referto the signed informed consent document in the medical record. The bowel preparation used was Miralax and bisacodyl tablets via split dose instruction. The scope was passed under direct vision. TheColonoscope [id number] was introduced through the anus and advanced to the the cecum, identified by appendiceal orifice and ileocecal valve. The colonoscopy was performed without difficulty. The patient tolerated the procedure well. The qualityof the bowel preparation was good. The ileocecalvalve, appendiceal orifice, and rectum werephotographed. Findings: Hemorrhoids were found on perianal exam. The colon (entire examined portion) appeared normal. Electronically signed by Sixto Falk M.D. Sixto Falk M.D. 02/11/2023 9:49:36 AM Number of Addenda: 0 Note Initiated On: 02/11/2023 8:31 AM Procedure Code(s): --- Professional --- 77411, Colonoscopy, flexible; diagnostic, including collection of specimen(s) by brushing or washing, when performed (separateprocedure) --- Technical --- 61314, Colonoscopy, flexible; diagnostic, including collection of specimen(s) by brushing or washing, when performed (separateprocedure) Diagnosis Code(s): --- Professional --- R19.5, Other fecal abnormalities K64.9, Unspecified hemorrhoids --- Technical --- R19.5, Other fecal abnormalities K64.9, Unspecified hemorrhoids CPT copyright 2020 [employer]. All rights reserved. The codes documented in this report are preliminary and upon nutritional yeast supervisor reviewmay be revised to meet current compliance requirements. 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 Does NOT exclude the possibility of recent exposure to HCV. Equivocal: Equivocal for HCV antibodies. Supplemental molecular testing will be automatically performed to determine infection status in accordance with current CDC screening recommendations. Reactive: Positive for HCV antibodies. This may represent current or past HCV infection. Supplemental molecular testing will be automatically performed to determine current infection status in accordance with current CDC screening recommendations. Interpretive data was last revised on 2020. 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 02/02/2021 5:53 PM SOLE 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 OPERATOR Gunnar Brown MD LAB MICROBIOLOGY - GENERAL ORDERABLES Final Result [facility] ([place]) 1 [facility] [place] [address] from Last 3 Months or Most Recently Relevant to Health Maintenance Insurance [employer] meevl [facility] [place] [address] R [facility] Advance Directives For more information, please contact: [phone] * Full Code (Latest Code Status on File) Date Activated Date Inactivated Comments 02/11/2023 8:32 AM 02/11/2023 2:49 PM * Full Code Date Activated Date Inactivated Comments 02/11/2023 8:32 AM 02/11/2023 8:32 AM * Full Code Date Activated Date Inactivated Comments 09/21/2019 11:49 AM 09/22/2019 7:35 PM 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
--- OUTSIDE RECORDS SUMMARY | 2025-09-30 12:29 | XMS_ITS | Encounter Summary ---
Author Organization [facility] Healthcare Address [address] [place] [address] Care Team Providers Care Head Animal Keeper Name Role Phone Gunnar Brown MD Primary Care Provider [phone] [place] MD Unavailable [phone]- [phone] Encounter Details Date Type Department Care Team (Late st Contact Info) Description 08/22/2025 Results Follow-Up [facility] Medical [facility] Primary Care at [address] [address] Gunnar Brown MD [address] [place] [address] [address] [place] [address] XR Spine Lumbar 2 or 3 Views Social History Tobacco Use Types Packs/Day Years Used Date Smoking Tobacco: Former Cigarettes Q uit: 12/1999 Smokeless Tobacco: Never Alcohol Use Standard Drinks/Week Comments No 0 (1 standard drink = 0.6 oz pur e alcohol) PHQ-2 Answer Date Recorded PHQ-2 Total Score (If total score is 3 or more points, staff should administer the PHQ-9) 0 08/22/2025 Personal Safety Answer Date Recorded Have you ever been in or are you currently in a harmful physical or emotional relationship or is someone making you feel afraid or unsafe? 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 Gender Identity Not on file Sexual Orientation Not on file documented as of this encounter Functional Status * BP Location Answer Date of Assessment Author Right arm 08/22/2025 9:00 AM Cindy Michael MA * BP Location Answer Date of Assessment Author Right arm 08/22/2025 9:00 AM Cindy Michael MA documented as of this encounter Plan of Treatment Not on file documented as of this encounter Visit Diagnoses Not on filedocumented in this encounter Care Teams Head Animal Keeper Relationship Specialty Start Date End Date Gunnar Brown MD PCP - General Family Medicine 12/29/20 [place] [address] [place] [address] Consulting Physician Urology 08/22/25 documented as of this encounter
== END 2025-09-30 12:07 | disposition home or self-care (01) ==
PROVIDERS: PCP Family Medicine; Visit Provider Urology
DX: C61 Malignant neoplasm of prostate (principal); Z19.1 Hormone sensitive malignancy status
CPT/HCPCS: 78815; A9596